=== PATIENT | male | born 1940 | race Caucasian/White ===

== ENCOUNTER 2025-02-25 10:44 | Observation (INO) | payer MEDICARE, OTHER, SELFPAY ==
[2025-02-22 14:49] LABS: Partial Thromboplast Time 25.2 Seconds (24.1-36.2); Prothrombin Time (Protime)PT. 13.7 SECONDS (11.7-14.9)
[2025-02-22 15:16] LABS: Magnesium 2.0 mg/dL (1.5-2.2)
--- NOTE | 2025-02-22 15:26 | PAT.ANE_ITS ---
Pre-Assessment Diagnosis/Proposed Procedure Planned Operative Procedure(s): RIGHT TOTAL KNEE REPLACEMENT Anesthesia History Anesthesia History - rehabilitation specialist: Anesthesia History - rehabilitation specialist Hx Hospitalization No 02/22/25 12:24 Any Problems With Anesthesia No 02/22/25 12:24 Cholinesterase deficiency No 02/22/25 12:24 You/Your Family Experience No 02/22/25 12:24 fever (hyperthermia) with Relationship Recent Exposure to Contagious Disease Does patient have nerve No 02/22/25 12:24 stimulator Patient instructed to have device shut off --Does patient have Pacemaker or ICD? When Was Last Pacemaker Check QUESTION #4 FULL TEXT: You/Your Family Experience fever (hyperthermia) with Anesthesia Last Oral Intake Last Oral intake: Last Oral Intake NPO since Meds taken in AM with sips of water? Meds patient instructed to take am of surgery PONV PONV - rehabilitation specialist: PONV - rehabilitation specialist Female No 02/22/25 12:24 HX of Motion Sickness No 02/22/25 12:24 HX of N/V After Surgery No 02/22/25 12:24 Non-Smoker Yes 02/22/25 12:24 Duration of Surgery greater Yes 02/22/25 12:24 than 60 minutes Number of Risk Factors 2 02/22/25 12:24 PONV Score Moderate Risk 02/22/25 12:24 Respiratory Assessment Respiratory Assessment - rehabilitation specialist: Respiratory Tract Infection Hx - rehabilitation specialist Hx Respiratory Tract Infection No 02/22/25 12:24 STOP Sleep Apnea STOP Sleep Apnea - rehabilitation specialist: STOP Sleep Apnea - rehabilitation specialist Hx Hypertension Yes: CONTROLLED WITH MED 02/22/25 12:24 Hx Sleep Apnea No 02/22/25 12:24 CPAP BIPAP Do you snore loudly (louder No 02/22/25 12:24 than talking or can be heard Do you often feel tired/ No 02/22/25 12:24 fatigued/ sleepy during daytime? Has anyone observed you stop No 02/22/25 12:24 breathing during sleep? STOP Results Negative 02/22/25 12:24 QUESTION #5 FULL TEXT : Do you snore loudly (louder than talking or can be heard through closed doors)? Tobacco Use History Tobacco Use History - rehabilitation specialist: Tobacco Use History - rehabilitation specialist Tobacco Use Smoking Status Former smoker 02/22/25 12:24 Hx Tobacco Use No 02/22/25 12:24 Years Smoking 60 02/22/25 12:24 Packs Smoked per Day Smoking Cessation Date was Yes - quit smoking within 15 02/22/25 12:24 within the last 15 years years Hx Smoking Cessation Date 04/08/21 02/22/25 12:24 Hx Smoking Cessation Counseling Hematologic Medial History Hematologic Hx - rehabilitation specialist: Hematologic Medical Hx - prepared foods service team member Hx of Blood Transfusion Yes 02/22/25 12:24 Hx of Transfusion in last 3 No 02/22/25 12:24 Months Date of Last Transfusion (if within last 3 months) Ever experience any problems No 02/22/25 12:24 with transfusion(s)? Specify any problems Hx of Preganancy in last 3 N/A 02/22/25 12:24 Months Nurse Filling Out Transfusion NBUCHER 02/22/25 12:24 & Questions: Date: 02/22/25 02/22/25 12:24 Time: 12:29 02/22/25 12:24 Patient unable to answer at this time (ie. confused, unrespo /Reproduction History /Reproductive History - rehabilitation specialist: /Reproductive Hx- rehabilitation specialist Hx Now No 02/22/25 12:24 Gestational Age (in weeks): EDC: Hx Hx Para Hx Section SAB No 02/22/25 12:24 Does the father of the baby or his family experience fever w Father of the baby Malignant Hypertension history comment [facility] Medical History (Updated 02/22/25 @ 12:36 by Marcela Alexis) Wears glasses Wears dentures Ambulates with cane High cholesterol Shortness of breath on exertion History of edema Incisional hernia History of abdominal aortic aneurysm (AAA) Type II diabetes mellitus Pleural effusion Iron deficiency anemia Dysphagia Duodenal cancer AVM (arteriovenous malformation) Arterial insufficiency of lower extremity Aortic stenosis BPH (benign prostatic hyperplasia) Prostate disease History of GI bleed Emphysema, unspecified COPD (chronic obstructive pulmonary disease) Former smoker HLD (hyperlipidemia) History of transcatheter aortic valve replacement (TAVR) (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/24) History of heart attack CAD (coronary artery disease) History of echocardiogram Hypertension Cardiology follow-up encounter History of CHF (congestive heart failure) History of atrial fibrillation Low iron Anemia Diabetes Osteoarthritis Home Medications ?Medication ?Instructions ?Recorded ?Last Taken ?Type albuterol sulfate 90 mcg/actuation 2 puff inhalation Q 4H PRN PRN 02/19/25 Unknown History aerosol inhaler wheezing amiodarone 200 mg tablet 200 mg PO DAILY 02/19/25 Unk nown History aspirin 81 mg tablet,delayed 81 mg PO DAILY 02/19/25 U nknown History release atorvastatin 40 mg tablet 40 mg PO QHS 02/19/25 Unknow n History clopidogrel 75 mg tablet 75 mg PO DAILY 02/19/25 Unkn own History docusate sodium 100 mg capsule 100 mg PO BID PRN const ipation 02/19/25 Unknown History doxazosin 1 mg tablet 1 mg PO DAILY 02/19/25 Unkno wn History ferrous sulfate 325 mg (65 mg 325 mg PO DAILY 02/19/25 Unknown History iron) tablet finasteride 5 mg tablet 5 mg PO DAILY 02/19/25 Unkno wn History furosemide 40 mg tablet 40 mg PO DAILY 02/19/25 Unkn own History metformin 500 mg tablet 500 mg PO BID 02/19/25 Unkno wn History metoprolol succinate 25 mg 25 mg PO DAILY 02/19/25 Unk nown History tablet,extended release 24 hr pantoprazole 40 mg tablet,delayed 40 mg PO BID 5 Unknown History release multivitamin (Daily Multi-Vitamin 1 tab PO DAILY 02/22 Unknown History tablet) Allergy/AdvReac Type Severity Reaction Status Date / Time dapagliflozin (From [facility]) Allergy Mild Constipatio Verified 02/22/25 12:21 n lisinopril Allergy Unknown Other Verified 02/22/25 12:21 adhesive tape (tape) AdvReac Mild Itching Verified 02/22/25 12:21 Surgical History (Updated 02/22/25 @ 12:36 by Marcela Alexis) History of cholecystectomy History of cardiac catheterization History of colectomy History of colonoscopy History of cataract extraction History of laparotomy History of herniorrhaphy History of endovascular stent graft for abdominal aortic aneurysm History of heart surgery Social History Smoking Status: Former smoker Audit: Pertinent Findings Pertinent Findings EKG Perinent findings: February 02, 2025.Sinus rhythm with first-degree AV block. Left axis deviation. Incomplete right bundle branch block.. Echo (EF%) pertinent findings: 05/26/2024. EF of 55 to 60%. Transcatheter aortic valve present. RVSP is 36 mmHg. Consult pertinent findings: 02/10/2025. [facility]. 1. Coronary artery disease?stable. No anginal symptoms. Continue aspirin, Plavix, atorvastatin. Status post PTCA in July 2024 with angioplasty and stenting of the LAD. 2. Paroxysmal atrial fibrillation?stable. Maintaining sinus rhythm. Off anticoagulation due to recurrent GI bleeding. Continue amiodarone. [id number]- VASc score 4 3. Cardiomyopathy?stable. EF of 40 to 45%. [place] Heart Association class II. Continue metoprolol. 3. Combined systolic and diastolic heart failure?patient is euvolemic today. 4. GI bleed?resolved. 5. Status post TAVR?follow-up in TAVR clinic. 6. Preop cardiovascular exam?planned total right knee arthroplasty. Patient is status post 6 months after a stent. Okay to hold Plavix for 5 days prior to knee surgery. Continue aspirin. Okay to proceed with surgery at low to moderate cardiac risk. 02/08/2025. Cleared for surgery and anesthesia. Recommendation Anesthesia Recommendation Anesthesia recommendation: OPTIMIZED for anesthesia
[2025-02-25] VITALS (16 sets, daily range): BP systolic 126–190; BP diastolic 69–91; PULSE 57–78; RESP 14–17; TEMP 36.1–36.8; O2SAT 86–100; BMI 31.4; BMI 31.8
--- NOTE | 2025-02-25 08:28 | PRE.ANES_ITS ---
ASA Classification* ASA Classification ASA Classification: 3 Assessment & Plan Anesthesia* Anesthesia Assessment Anesthesia Assessment: Discussed sedation and/or anesthesia options, risks, benefits, and alternatives with patient/parents/legal guardian/POA. Questions invited. The patient/parents/legal guardian/POA seems to understand and agrees to proceed with anesthesia plan. Reviewed the physical assessment, medical history, allergy history and patient home medications list prior to surgery/procedure/anesthetic and documented any changes. Performed airway and anesthesia risk assessments. Anesthesia Type Anesthesia Type: General and Block Anesthesia Focused Assessment* Airway Assessment Mouth opens: >3 cm Mallampati Score: II Labs Anesthesia Preop lab: CBC CHEMISTRY Magnesium, (1.5-2.2) 2.0 mg/dL 02/22/25, 13:45 COAG PT, (11.7-14.9) 13.7 SECONDS 02/22/25, 13:45 Pre-Assessment Diagnosis/Proposed Procedure Planned Operative Procedure(s): RIGHT TOTAL KNEE REPLACEMENT Anesthesia History Anesthesia History - abstract searcher: Anesthesia History - abstract searcher Hx Hospitalization No 02/22/25 12:24 Any Problems With Anesthesia No 02/22/25 12:24 Cholinesterase deficiency No 02/22/25 12:24 You/Your Family Experience No 02/22/25 12:24 fever (hyperthermia) with Relationship Recent Exposure to Contagious Disease Does patient have nerve No 02/22/25 12:24 stimulator Patient instructed to have device shut off --Does patient have Pacemaker or ICD? When Was Last Pacemaker Check QUESTION #4 FULL TEXT: You/Your Family Experience fever (hyperthermia) with Anesthesia Last Oral Intake Last Oral intake: Last Oral Intake NPO since Meds taken in AM with sips of water? Meds patient instructed to take am of surgery PONV PONV - abstract searcher: PONV - abstract searcher Female No 02/22/25 12:24 HX of Motion Sickness No 02/22/25 12:24 HX of N/V After Surgery No 02/22/25 12:24 Non-Smoker Yes 02/22/25 12:24 Duration of Surgery greater Yes 02/22/25 12:24 than 60 minutes Number of Risk Factors 2 02/22/25 12:24 PONV Score Moderate Risk 02/22/25 12:24 Respiratory Assessment Respiratory Assessment - abstract searcher: Respiratory Tract Infection Hx - abstract searcher Hx Respiratory Tract Infection No 02/22/25 12:24 STOP Sleep Apnea STOP Sleep Apnea - abstract searcher: STOP Sleep Apnea - abstract searcher Hx Hypertension Yes: CONTROLLED WITH MED 02/22/25 12:24 Hx Sleep Apnea No 02/22/25 12:24 CPAP BIPAP Do you snore loudly (louder No 02/22/25 12:24 than talking or can be heard Do you often feel tired/ No 02/22/25 12:24 fatigued/ sleepy during daytime? Has anyone observed you stop No 02/22/25 12:24 breathing during sleep? STOP Results Negative 02/22/25 12:24 QUESTION #5 FULL TEXT : Do you snore loudly (louder than talking or can be heard through closed doors)? Tobacco Use History Tobacco Use History - abstract searcher: Tobacco Use History - abstract searcher Tobacco Use Smoking Status Former smoker 02/22/25 12:24 Hx Tobacco Use No 02/22/25 12:24 Years Smoking 60 02/22/25 12:24 Packs Smoked per Day Smoking Cessation Date was Yes - quit smoking within 15 02/22/25 12:24 within the last 15 years years Hx Smoking Cessation Date 04/08/21 02/22/25 12:24 Hx Smoking Cessation Counseling Hematologic Medial History Hematologic Hx - abstract searcher: Hematologic Medical Hx - supervisor anodizing Hx of Blood Transfusion Yes 02/22/25 12:24 Hx of Transfusion in last 3 No 02/22/25 12:24 Months Date of Last Transfusion (if within last 3 months) Ever experience any problems No 02/22/25 12:24 with transfusion(s)? Specify any problems Hx of Preganancy in last 3 N/A 02/22/25 12:24 Months Nurse Filling Out Transfusion [facility] 02/22/25 12:24 & Questions: Date: 02/22/25 02/22/25 12:24 Time: 12:29 02/22/25 12:24 Patient unable to answer at this time (ie. confused, unrespo /Reproduction History /Reproductive History - abstract searcher: /Reproductive Hx- abstract searcher Hx Now No 02/22/25 12:24 Gestational Age (in weeks): EDC: Hx Hx Para Hx Section SAB No 02/22/25 12:24 Does the father of the baby or his family experience fever w Father of the baby Malignant Hypertension history comment Active Medications Active Medications: Current Medications Generic Name Dose Route Start Last Admin Trade Name Aman PRN Reason Stop Dose Admin Acetaminophen 1,000 mg 02/25/25 10:15 Acetaminophen 500 Mg Tablet PO 02/25/25 10:16 PREOP ONE Tranexamic Acid 2,000 mg/ 0 mg 02/25/25 10:15 Sodium Chloride 100 ml OPERA.SITE 02/25/25 10:16 X1 ONE Sodium Chloride 77.9 ml/ 0 ml 02/25/25 10:15 Ropivacaine 200 mg/ OPERA.SITE 02/25/25 10:16 Epinephrine HCl 0.6 mg/ INTRAOP ONE Ketorolac Tromethamine 30 mg/ Morphine Sulfate 5 mg Dexamethasone Sodium Phosphate 10 mg 02/25/25 10:15 Dexamethasone 10 Mg/Ml Vial IV 02/25/25 10:16 INTRAOP ONE Gabapentin 600 mg 02/25/25 10:15 Gabapentin 600 Mg Tablet PO 02/25/25 10:16 PREOP ONE Cefazolin Sodium 2 gm/ Sodium 110 mls @ 150 mls/hr 02/25/25 10:15 Chloride IV 02/25/25 10:58 INTRAOP ONE Lactated Ringer's 1,000 mls @ 15 mls/hr 02/25/25 08:15 IV .Q48H MESSI Insulin Human Lispro 1 - 6 unit 02/25/25 10:15 Insulin Lispro 100 Unit/Ml Insuln.Pen SC Q4H PRN PRN BG>/= 180, SEE PROTOCOL Protocol PFSH Medical History Wears glasses Wears dentures Ambulates with cane High cholesterol Shortness of breath on exertion History of edema Incisional hernia History of abdominal aortic aneurysm (AAA) Type II diabetes mellitus Pleural effusion Iron deficiency anemia Dysphagia Duodenal cancer AVM (arteriovenous malformation) Arterial insufficiency of lower extremity Aortic stenosis BPH (benign prostatic hyperplasia) Prostate disease History of GI bleed Emphysema, unspecified COPD (chronic obstructive pulmonary disease) Former smoker HLD (hyperlipidemia) History of transcatheter aortic valve replacement (TAVR) (04/29/24) History of heart attack CAD (coronary artery disease) History of echocardiogram Hypertension Cardiology follow-up encounter History of CHF (congestive heart failure) History of atrial fibrillation Low iron Anemia Diabetes Osteoarthritis Home Medications ?Medication ?Instructions ?Recorded ?Last Taken ?Type albuterol sulfate 90 mcg/actuation 2 puff inhalation Q 4H PRN PRN 02/19/25 Unknown History aerosol inhaler wheezing amiodarone 200 mg tablet 200 mg PO DAILY 02/19/25 Unk nown History aspirin 81 mg tablet,delayed 81 mg PO DAILY 02/19/25 U nknown History release atorvastatin 40 mg tablet 40 mg PO QHS 02/19/25 Unknow n History clopidogrel 75 mg tablet 75 mg PO DAILY 02/19/25 Unkn own History docusate sodium 100 mg capsule 100 mg PO BID PRN const ipation 02/19/25 Unknown History doxazosin 1 mg tablet 1 mg PO DAILY 02/19/25 Unkno wn History ferrous sulfate 325 mg (65 mg 325 mg PO DAILY 02/19/25 Unknown History iron) tablet finasteride 5 mg tablet 5 mg PO DAILY 02/19/25 Unkno wn History furosemide 40 mg tablet 40 mg PO DAILY 02/19/25 Unkn own History metformin 500 mg tablet 500 mg PO BID 02/19/25 Unkno wn History metoprolol succinate 25 mg 25 mg PO DAILY 02/19/25 Unk nown History tablet,extended release 24 hr pantoprazole 40 mg tablet,delayed 40 mg PO BID 5 Unknown History release multivitamin (Daily Multi-Vitamin 1 tab PO DAILY 02/22 Unknown History tablet) Allergy/AdvReac Type Severity Reaction Status Date / Time dapagliflozin (From [facility]) Allergy Mild Constipatio Verified 02/25/25 08:28 n lisinopril Allergy Unknown Other Verified 02/25/25 08:28 adhesive tape (tape) AdvReac Mild Itching Verified 02/25/25 08:28 Surgical History History of cholecystectomy History of cardiac catheterization History of colectomy History of colonoscopy History of cataract extraction History of laparotomy History of herniorrhaphy History of endovascular stent graft for abdominal aortic aneurysm History of heart surgery Social History Smoking Status: Former smoker Review of Systems (Anesthesia) ROS Narrative System reviewed and no additional complaints, except as documented.
[2025-02-25] MEDS: Magnesium 1 GM over 15 mins IV (08:42)
[2025-02-25] MEDS: Lactated Ringers 1,000 ML 15 ML IV (08:42)
[2025-02-25] MEDS: Midazolam 2 MG/2 ML Syringe 1 MG IV (10:25)
[2025-02-25] MEDS: Lidocaine 1% (5 ml sdv) 5 ML Vial 3 ML IV (10:25)
[2025-02-25] MEDS: Cefazolin 1 GM/5 ML Vial 2 GM IV (10:45)
[2025-02-25] MEDS: JPS (Morphine 10mg/ml) OPERA.SITE (11:07)
[2025-02-25] MEDS: fentaNYL 100 MCG/2 ML Ampul 200 MCG IV (11:18)
[2025-02-25] MEDS: TXA 2000mg in NS 100ml (Placed in Wound) OPERA.SITE (12:00)
--- NOTE | 2025-02-25 12:03 | OP.PCM_ITS ---
Operative Report (Standard) Operative Information Date of Procedure: 02/25/25 Pre-Operative Diagnosis: Right knee arthritis Post-Operative Diagnosis: Same Surgery/Procedure Performed: Right knee replacement vp scientific: Yes Sales Service Supervisor: Steffany Coughlin Tasks completed by library services assistant: Closing, Implanting device, Hemostasis: Electrocautery and Retracting Additional mortgage assistant?: No Type of Anesthesia: General/Supplemental RN Documented Start/Stop Times: Operation Date: 02/25/25 10:15 Case Time Into Pre-Op 02/25/25 08:10 Anesthesia Start 02/25/25 10:41 Into Room 02/25/25 10:41 Procedure Start 02/25/25 11:09 Procedure Start Time: 11:09 Procedure Stop Time: 12:43 Select all DRAINS/GRAFTS/IMPLANTS that apply: Prosthetic device Prosthetic device details: [place] total knee replacement Special Medications: Ancef, Tranexamic acid wash Estimated Blood Loss: 50 Fluids Replaced: 900 Specimen collected: No Description of surgery: Preoperative diagnosis: [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 Marin Special medications: Ancef 2 g IV, tranexamic acid 2 g wash, joint pain cocktail: Ropivacaine, epinephrine, Duramorph, tramadol EBL: 50 Tourniquet time 36 minutes Indications for surgery: Patient is a [84 ]-year-old [ male] with a history of knee arthritis appropriately treated and failed conservative measures and wished to proceed with total knee replacement. Patient was cleared for surgery by the medical doctor and has been evaluated by the anesthesia staff Findings: Intraoperative findings showed severe arthritis of the knee. Patient underwent knee replacement using [place] triathlon total knee components. Press-fit size [6] femur, size [6] tibia, size [6-9 mm CS] X3 tibial polyethylene insert, knee was nicely balanced. Patella tracked well, patella was not resurfaced.. Patient underwent standard wound closure in layers. Vi cryl and strata fix sutures utilized with skin amado. nurse assistant, physician mortgage assistant, was utilized throughout the entire procedure. They were vital in helping with patient positioning, holding of retractors, exposing the tissues adequately for safe completion of the procedure including cutting of the bone, helping civil cadd technician appropriate alignment and sizing of the components, implantation of the components, as well as wound closure, bandage application, and safe patient transfer. Without instructor adjunct surgical technician, physician mortgage assistant, surgical time would have been significantly increased, and surgical outcome could have been less optimal. Description of procedure: The patient was taken to the OR, transferred to the OR table. They were given a spinal anesthetic. Ancef was given IV preoperatively. Tranexamic acid was given IV preoperatively. Well-padded tourniquet was applied to the upper thigh of the operative leg. Nonoperative leg had a MARLON hose and SCD on throughout. Operative limb was prepped padded and draped in usual orthopedic sterile fashion for the procedure. We began by injecting the pain relieving solution in the anterior superior aspect of the knee region. The limb was exsanguinated, and the tourniquet was applied to 250 mmHg. Made a midline incision through skin, subcutaneous tissue, bringing down us on the extensor mechanism. Medial para patellar arthrotomy was carried out. Straw-colored joint fluid was evacuated. We raised a sleeve of tissue off the upper medial tibia. Resected some of the infrapatellar fat pad. We remove degenerative medial and lateral meniscus. Removed bone spurs from about the patella. We removed tissue off the anterior aspect of the distal femur. Patella was translated laterally and/or everted as needed throughout the procedure. ACL was resected. PCL was preserved. Collateral ligaments were preserved. Physician placed the retractors and mortgage assistant held retractors protecting above ligaments throughout the procedure. Cartilage was removed from the distal femur and upper tibia at the appropriate locations. Next custom cutting block was applied to the front of the femur. Appropriate external rotation . Distal femoral cut carried out. 4-in-1 cutting premade block was applied to the distal femur and held in place with 4 pins. Intelligence Chief again held retractors to protect the soft tissues while surgeon performed anterior, posterior, and chamfer cuts. Bony fragments were removed. PCL retractor was placed and collateral ligament protectors placed by the surgeon, held by the assistance. Tibial external alignment guide was utilized under standard technique going down the shaft of the tibia, to the base of the second metatarsal. Appropriate posterior slope was built in. Intelligence Chief help civil cadd technician alignment. Cutting block was held in place with 3 pins. Again checked the external alignment. Tibial cut carried out with a saw while the mortgage assistant held retractors protecting the soft tissues about the anterior, medial, lateral, and posterior knee. Bone fragment removed. We then sized off the upper tibia with the help of the mortgage assistant. We then checked flexion extension gaps finding them to be adequate and equal. Next the distal femoral trial was applied. Tibial tray was allowed to freefloat with a 9 mm insert. Knee was flexed and extended an external alignment guide is utilized. Tibial trial was pinned in place. Drill holes were placed into the distal femoral trial and it was removed. Punch was used on the upper tibial component and that was removed. The sclerotic bone was softened with a sharp pin. Bone spurs removed from the posterior medial and posterior lateral aspect of the femur while the mortgage assistant lifted up on the distal femur and exposed each compartment. Bleeding was controlled at the back of the knee with the bovey. Posterior knee soft tissues were carefully injected with pain relieving solution. Components were checked and open. Tourniquet deflated at 36 minutes.. Knee was thoroughly irrigated with Irrisept and sterile Betadine.. The bony surfaces cleaned and dried. We press-fit the tibia, femur, and component. Tibial tray insert placed.. Intelligence Chief held retractors exposing the bony surfaces of the tibia and femur which were hammered in position. Tranexamic acid 2 g wash performed. We thoroughly irrigated and debrided the knee. Bleeding controlled with the Bovie. Knee was again thoroughly irrigated with sterile Betadine and Irrisept and saline. Patella noted to track nicely. We repaired the arthrotomy with a combination of #1 Vicryl and #2 strata fix. We did a mid layer of 1 Vicryl and #1 strata fix running. We then did inverted 2-0 vicryl . Bussey used on the skin.. Mepilex dressing applied. MARLON hose and SCDs applied. Patient was awoken from their anesthetic, transferred back to their own bed and recovery room in satisfactory condition.. Patient was observation status, appropriate IV antibiotic to be utilized as well as medication for DVT prevention. Hopeful discharge tomorrow. Hospitalist will be consulted we plan to use Eliquis 2.5 mg twice a day for 2 weeks, followed by aspirin 81 mg twice a day with Plavix for 2 weeks, followed by resuming his normal aspirin and Plavix dosage. physical therapy will be consulted. This note was generated with [employer]ipation software. It may contain incorrect words, spelling, and punctuation that were not noted in checking the note before signing. Surgical Findings: Knee arthritis Complications Complications: No Admit VTE Documentation VTE Present on Admission: No VTE Mechan Device Prophylaxis: SCD's and Thigh High MARLON Hose VTE Pharm Prophylaxis ordered?: Yes
--- NOTE | 2025-02-25 13:50 | RAD_ITS ---
PROCEDURE: KNEE 1 OR 2 VIEWS 02/25/2025 REASON FOR EXAM: POST OP-AP/LAT TECHNIQUE: Procedure Code: RADK Modality: DX Procedure: KNEE 1 OR 2 VIEWS Right knee two views COMPARISON: None FINDINGS: There is a total knee prosthesis in position. Soft tissue air and skin amado are noted consistent with recent surgery. Alignment is maintained. Vascular calcifications are noted. RAD/Knee 1 or 2 Views IMPRESSION: Hardware in position. Reading Location: [facility]
--- NOTE | 2025-02-25 14:22 | PCM.POST.ANE ---
Anesthesia: Postop Eval I Current Vital Signs Temperature: 97 F Pulse Rate: 65 Blood Pressure: 166/75 Respiratory Rate: 16 Pulse Ox: 99 Assessment Airway patent: Yes Spontaneous unlabored respirations: Yes Mental status: Awake nausea: No Vomiting: No Anesthesia Complication: No Fluid Hydration Crystalloid volume administer (ml): 400 Total IV fluid infused: 400 Progress Note Anesthesia document: Postop Eval 1 completed: Yes
--- NOTE | 2025-02-25 14:23 | PCM.POSTANE2 ---
Anesthesia Postop Eval I Sum Postop Eval Completion status Anesthesia document: Postop Eval 1 completed: Yes Anesthesia Postop Eval I Summary Anesthesia Postop Eval I Summary: Anesthesia Postop Eval I: Assessment Summary Airway patent Yes 02/25/25 14:23 Spontaneous unlabored Yes 02/25/25 14:23 respirations Mental status Awake 02/25/25 14:23 nausea No 02/25/25 14:23 Vomiting No 02/25/25 14:23 Anesthesia Postop Eval I: Fluid Summary Crystalloid volume administer 400 02/25/25 14:23 (ml) Colloids volume administered ( ml) Blood Product volume administered (ml) Total IV fluid infused 400 02/25/25 14:23 Anesthesia Postop Eval I: Summary Notes Anesthesia Complication No 02/25/25 14:23 Anesthesia Complication Comment: Post-operative progress note Anesthesia: Postop Eval II Evaluation Mental status: Awake Pain Level: 2 nausea: No Vomiting: No
[2025-02-25] MEDS: Lactated Ringers 1,000 ML 125 ML IV ×2 (14:24→22:52)
--- NOTE | 2025-02-25 15:02 | PCM.POST.ANE ---
Anesthesia: Postop Eval I Current Vital Signs Temperature: 97 F Pulse Rate: 78 Blood Pressure: 165/80 Respiratory Rate: 14 Pulse Ox: 94 Oxygen Delivery Method: Nasal Cannula Oxygen Flow Rate (L/min): 2 Assessment Airway patent: Yes Spontaneous unlabored respirations: Yes Mental status: Awake and Calm nausea: No Vomiting: No Anesthesia Complication: No Fluid Hydration Crystalloid volume administer (ml): 900 Total IV fluid infused: 900 Progress Note Post-operative progress note: put in 32 F Nasal airway in PACU to relieve obstruction Anesthesia document: Postop Eval 1 completed: Yes
--- NOTE | 2025-02-25 15:48 | PN.HOSP_ITS ---
Reason for Visit Chief Complaint: right knee arthritis Subjective Subjective Pt seen and examined post op Right total knee per ortho Dr. Nunes. Pt is resting comfortably in bed NAD. Reports R knee pain is tolerable and rates it at 5/10 currently. Pt had elevated bp post op and received labetalol. Pt now on the floor with no complaints of SOB, CP, chest pressure, dizziness or LH. Objective Data Objective Data Vital Signs: Vital Signs Temp Pulse Resp BP Pulse Ox O2 Del Method O2 Flow Rate 97 F L 78 14 165/80 H 94 Nasal Cannula 2 02/25/25 15:03 02/25/25 15:03 02/25/25 15:03 02/25/25 15:03 02/25/25 15:03 02/25/25 15:03 02/25/25 15:03 Oxygen Flow Rate (L/min) 2 Oxygen Delivery Method Nasal Cannula Weight: 92.079 kg Body Mass Index (BMI) 31.8 Intake & Output: Intake and Output for Last 24 Hours 02/23/25 02/24/25 02/25/25 23:59 23:59 23:59 Intake Total 902.25 / 902.25 Output Total 50 / 50 Balance 852.25 / 852.25 Lab / Micro Data Labs: Laboratory Results - last 24 hr 02/25/25 08:27: POC Glucose 181 H 02/25/25 11:14: POC Glucose 146 H 02/25/25 13:12: POC Glucose 169 H 02/25/25 13:59: POC Glucose 196 H 02/25/25 15:03: POC Glucose 231 H Micro: Microbiology 02/22/25 13:45 Swab (Method) Nasal Screen MRSA/MSSA - Final Radiography Diagnostic Testing: Radiology Impression Knee X-Ray 02/25/25 13:50 IMPRESSION: Hardware in position. Reading Location: [facility] Physical Exam Const alert, oriented x3, no apparent distress, healthy appearing and well nourished HEENT head/scalp atraumatic Head and Scalp: normocephalic Eyes PERRL Resp normal respiratory effort, no retractions, no use of accessory muscles and clear to auscultation bilaterally Cardio regular rate and regular rhythm Cardio Narrative: 2/6 systolic murmur LSB 2nd ICS Extremity General Extremity: Negative for edema Neuro oriented x3 Psych affect normal Assessment & Plan Assessment/Plan (1) Osteoarthritis: PLAN: 1. Osteoarthritis - s/p R TKR per Dr. Nunes today. Currently pain controlled / pt says is tolerable. Received perioperative cefazolin and TXA, also received labetalol post op for HTN. At this time pt resting comfortably in bed NAD. 2. Hx CAD prior prior stent July 2024 - plan is to resume asa/plavix per ortho after he is off Eliquis in 2 weeks. Pt also on statin and metoprolol. 3. HTN - with post op HTN. received 10 mg labetalol post op, now on the floor still with HTN >170 systolic. Pt to receive his daily dose of metoprolol and will also add hydralazine prn 4. DMt2 - last a1c 6.6%. resume metformin, added SSI, likely some elevation post op 2/2 perioperative decadron 5. Hx GI bleed - admitted to [place] for this Apr 08 - Apr 17, 2/2 duodenal AVM. Repeat CBC in AM. 6. Hx COPD - pt uses prn O2 at home up to 2 lpm. Currently resting comfortably in bed no SOB and clear lungs. May have albuterol prn. 7. 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 Hx CHF - last EF 55-60% s/p TAVR. Resume home lasix at DC 9. Hx Afib - on amiodarone. not on OAC normally suspect 2/2 hx GI bleed. 10. Hx BPH on finasteride, doxazosin DVT ppx: per ortho, plan is for eliquis 2.5 bid x 2 weeks, then asa bid with plavix 2 weeks, then normal asa/plavix regimen Thank you for the opportunity to participate in the care of this patient. This patient was seen by Damon Rangel PA-C under the supervision of Dr. Moise.
[2025-02-25] MEDS: Metoprolol(XL)Succ 25 MG Tablet PO (16:35)
[2025-02-25] MEDS: Cefazolin 1 GM/50 ML BAG IV (18:34)
[2025-02-26] VITALS (8 sets, daily range): BP systolic 111–130; BP diastolic 61–74; PULSE 64–70; RESP 16–18; TEMP 36.4–37.1; O2SAT 87–100
[2025-02-26] MEDS: Cefazolin 1 GM/50 ML BAG IV (03:15)
[2025-02-26] MEDS: Lactated Ringers 1,000 ML 125 ML IV (06:50)
[2025-02-26 07:24] LABS: Hematocrit 31.4 % (40-54); Hemoglobin 10.6 g/dL (13.0-16.5); Mean Corp Hgb Conc 33.8 g/dL (32-36); Mean Corpuscular Volume 88.7 fL (80-94); Mean Platelet Vol. 8.4 fl (6.2-12.0); Platelet Count 194 K/mm3 (150-450); RBC Distribution Width CV 14.0 % (11.6-14.6); RBC Distribution Width SD 45.6 fl (35.1-43.9); Red Blood Count 3.54 M/mm3 (4.6-6.2); White Blood Count 13.8 K/mm3 (4.4-11.0)
[2025-02-26 07:43] LABS: Anion Gap 12 (5-15); BUN 27 mg/dL (4-19); BUN/Creat Ratio 20.9 RATIO (10-20); Calcium,Total 8.6 mg/dL (7.6-11.0); Carbon Dioxide 22.0 mmol/L (21.0-32.0); Chloride 100 mmol/L (98-108); Estimated Creatinine Clearance 47.68 ml/min (50-250); Glucose 184 mg/dL (70-99); Potassium 4.7 mmol/L (3.3-5.1)
--- NOTE | 2025-02-26 07:57 | DCINST_ITS ---
Discharge Instructions DC O2, CPAP, BIPAP needs Home O2 Discharge instructions: No Dressing / Incision Discharge Activity: May Not Drive (while taking narcotic pain medications.) and Use Walker May shower in (days): 2 (only if incision is dry and without drainage. Do NOT soak/submerge in tub/pool/garcia/stream/hot tub.) Ice area for (Minutes): 20 (Every hour as needed for pain and swelling) Weight Bearing Status: Weight bearing as tolerated Keep extremity elevated above heart level: Operative Extremity Additional Activity Instructions:: Wear elastic stockings for 2 weeks after your surgery. Dressing / Incision Call your doctor if your incision/area has: Continuous Slow Oozing, Sudden Increased Bleeding, Increased Pain/ Swelling, Increased Redness and Foul Smelling Discharge Call your doctor if you observe: Fever of 101 or Higher, Shortness of breath, Chest pain and Calf discomfort Remove Dressing in: 5 days Cleanse incision/area with: Soap & Water Additional Dressing/Incision Instructions:: See postoperative orthopedic pink sheet Follow Up Care Please Follow Up With: Steffany Coughlin PA When: August 24, 2020 2:15 PM [facility] ([place] [facility]) Test Results: Test results from this visit will be discussed in further detail at your follow- up appointment, if applicable. Discharge Plan Admission Admit Date/Time: 02/25/25 10:44 Attending Provider: Ashok Nunes Primary Care Provider: MARY TORRES Consulting Providers: Joanne Wilson Discharge Orders/Prescriptions Prescriptions: New acetaminophen 500 mg Tablet 1,000 mg PO Q8 Qty: 0 0RF oxycodone 5 mg Tablet 5 - 10 mg PO Q4H PRN PRN (Reason: Pain Score 4-10) Qty: 0 0RF Eliquis 5 mg Tablet 2.5 mg PO BID Qty: 0 0RF Continued amiodarone 200 mg tablet 200 mg PO DAILY albuterol sulfate 90 mcg/actuation HFA aerosol inhaler 2 puff INHALATION Q4H PRN PRN (Reason: wheezing) atorvastatin 40 mg tablet 40 mg PO QHS docusate sodium 100 mg capsule 100 mg PO BID PRN (Reason: constipation) furosemide 40 mg tablet 40 mg PO DAILY metformin 500 mg tablet 500 mg PO BID doxazosin 1 mg tablet 1 mg PO DAILY pantoprazole 40 mg tablet,delayed release (DR/EC) 40 mg PO BID ferrous sulfate 325 mg (65 mg iron) tablet 325 mg PO DAILY metoprolol succinate 25 mg tablet extended release 24 hr 25 mg PO DAILY finasteride 5 mg tablet 5 mg PO DAILY multivitamin [Daily Multi-Vitamin] Tablet 1 tab PO DAILY Held aspirin 81 mg tablet,delayed release (DR/EC) 81 mg PO DAILY Hold Instructions: Resume on 03/13/25. Hold until finished with eliquis prescription then take twice daily for 2 weeks clopidogrel 75 mg tablet 75 mg PO DAILY Hold Instructions: Resume on 03/13/25. Hold until finished with eliquis Referrals / Follow Up: MARY TORRES, [employer] [Primary Care Provider, Family Practice] Disposition Disposition (needs filled in before D/C Order can be placed): Home, Self Care
--- NOTE | 2025-02-26 09:09 | CASEMGMT ---
JOSEPH BURKETT note: Noted dc instructions state pt's f/u appt @ [facility] w/Steffany DICK is 08/24/20. Call placed to [facility]. Appt claudia/Steffany is 03/11/25 @ 2 PM. Appt added to pt's dc instructions. Per [facility] pt is also scheduled for OP therapy @ [facility] 03/01 @ 10:15 AM. This was added to pt's dc plan. Denice AGUSTIN RN CM
--- NOTE | 2025-02-26 09:17 | PN.ORTHO_ITS ---
Subjective Subjective 84-year-old male underwent a right total knee arthroplasty yesterday morning. Intraoperative was uneventful he has been transferred to the third floor of the hospital. He worked with physical therapy no adverse events overnight he feels the pain in the right knee has been well controlled. Denies chest pain shortness of breath or calf pain. He admits to feeling somewhat lightheaded. His plan will be for a discharge to home later today. Objective Data Objective Data Patient is alert and oriented ?3 no acute distress at rest breathing easily without respiratory distress. Inspection of the right knee is with intact waterproof dressing without active drainage or erythema warmth or signs of infection. Negative Homans bilaterally without signs of DVT. Patient able to actively plantar and dorsiflex bilateral ankles against resistance sensation intact to light touch pedal pulses present bilaterally neurovascularly intact Vital Signs: Vital Signs Temp Pulse Resp BP Pulse Ox O2 Del Method O2 Flow Rate 98.1 F 65 18 128/72 H 96 Nasal Cannula 2 02/26/25 06:45 02/26/25 06:45 02/26/25 06:45 02/26/25 06:45 02/26/25 06:45 02/26/25 06:45 02/26/25 06:45 Oxygen Flow Rate (L/min) 2 Oxygen Delivery Method Nasal Cannula Weight: 92.079 kg Body Mass Index (BMI) 31.8 Intake & Output: Intake and Output for Last 24 Hours 02/24/25 02/25/25 02/26/25 23:59 23:59 23:59 Intake Total 1946.00 / 2346.00 1745.83 / 1745.83 Output Total 50 / 50 Balance 1896.00 / 2296.00 1745.83 / 1745.83 Lab / Micro Data Attestation: I reviewed the patient's lab results. 02/26/25 07:03 02/26/25 07:03 Labs: Laboratory Results - last 24 hr 02/25/25 08:27: POC Glucose 181 H 02/25/25 11:14: POC Glucose 146 H 02/25/25 13:12: POC Glucose 169 H 02/25/25 13:59: POC Glucose 196 H 02/25/25 15:03: POC Glucose 231 H 02/25/25 22:56: POC Glucose 220 H 02/26/25 07:03: WBC 13.8 H, RBC 3.54 L, Hgb 10.6 L, Hct 31.4 L, MCV 88.7, MCH 29.9, MCHC 33.8, RDW Std Deviation 45.6 H, RDW Coeff of Mariela 14.0, Plt Count 194, MPV 8.4, Sodium 135, Potassium 4.7, Chloride 100, Carbon Dioxide 22.0, Anion Gap 12, BUN 27 H, Creatinine 1.27 H, Estim Creat Clear Calc 47.68 L, Est GFR (MDRD) Non-Af 56 L, BUN/Creatinine Ratio 20.9 H, Glucose 184 H, Calcium 8.6 Micro: Microbiology 02/22/25 13:45 Swab (Method) Nasal Screen MRSA/MSSA - Final Radiography Diagnostic Testing: Radiology Impression Knee X-Ray 02/25/25 13:50 IMPRESSION: Hardware in position. Reading [facility] Postoperative x-rays reviewed by myself consistent with expected postoperative changes following a right total knee arthroplasty Assessment & Plan Assessment/Plan (1) Osteoarthritis: QUALIFIERS: Osteoarthritis location: knee Osteoarthritis type: p rimary Laterality: right Qualified Code(s): M17.11 - Unilateral primary osteoarthritis, right knee PLAN: -Status post right total knee arthroplasty postoperative day #1 -Continue oxycodone as needed for pain -DVT prophylaxis bilateral teds SCDs plan for Eliquis 2.5 mg 1 p.o. b.i.d. ?2 weeks postoperative. At that time he will then resume his preoperative dose of Plavix. He will increase preoperative dose of aspirin to become 81 mg twice daily times an additional 2 weeks. -Begin PT/OT weightbearing as tolerated right lower extremity with a walker. Plan for arrangements for outpatient physical therapy. -Drop in hemoglobin hematocrit a symptomatic without indications for transfusion likely a combination of hemodilution and acute blood loss continue to monitor -Leukocytosis afebrile without acute signs of infection likely resulting from acute stress response burst Decadron anticipate resolution over the next several days -Diabetes myelitis recommend keeping blood sugars less than 180 in the perioperative period to minimize the risks associated with postoperative complication -Encouraged incentive spirometry -Continue discharge planning with case management anticipate discharge to home later today -Continue postoperative medical management per hospitalist -Patient is orthopedically stable and okay for discharge when cleared medically having adequate pain control and doing well with physical therapy will plan to follow up in the office 2 weeks for x-rays and staple removal -Patient was previously scheduled as an outpatient procedure and then transferred to the hospital on a different date for an observation overnight stay. As a result he already has prescriptions at home for oxycodone and Zofran famotidine and Eliquis.
[2025-02-26] MEDS: APIXABAN 2.5 MG TABLET (WCH) PO (10:01)
[2025-02-26] MEDS: Metoprolol(XL)Succ 25 MG Tablet PO (10:02)
--- NOTE | 2025-02-26 10:13 | CASEMGMT ---
RODRIGUEZ Met with patient to complete RODRIGUEZ form. RODRIGUEZ form and its content were verbally explained and patient's questions were answered to the best of my ability.? Patient voiced understanding and signed RODRIGUEZ form.? Patient provided a copy of signed RODRIGUEZ form and original placed in patient's chart.? Patient had no further questions. Cyn Dhaliwal, Discharge Planning Asst
[2025-02-26] MEDS: Ensure Surgery 237 ML LIQUID PO (10:21)
--- NOTE | 2025-02-26 14:12 | CASEMGMT ---
JOSEPH BURKETT note: Discharge order is in. Pt to discharge home on Eliquis. Noted no new Rx sent to pharmacy for this in [facility]. Call placed to [facility] pharmacy in [place]. They did receive the order for Eliquis 2.5 mg 9 days ago and it is still available for pt to [facility]. Per pharmacy, cost is $23.40. Pt made aware. Provided w/Eliquis 30 day free-trial offer card and made aware this is a once-in-a lifetime use card. He states he may not use it and save it for a future use if cost is higher, but he is not sure. Pt states his son will be taking him home today. He is aware appt has been made @ [facility] for OP therapy 03/01 @ 10:15 AM. He denies needing any DME, verifying he has a walker @ home and denies having further discharge needs or concerns. Denice AGUSTIN RN CM
--- NOTE | 2025-02-26 16:14 | PCM.PN.HOSP ---
Reason for Visit Chief Complaint: right knee arthritis Subjective Subjective Patient evaluated bedside, no acute complaints whatsoever, looking forward to going home Objective Data Objective Data Vital Signs: Vital Signs Temp Pulse Resp BP Pulse Ox O2 Del Method O2 Flow Rate 97.6 F L 70 16 118/62 99 Room Air 2 02/26/25 14:04 02/26/25 14:04 02/26/25 14:04 02/26/25 14:04 02/26/25 14:04 02/26/25 14:04 02/26/25 08:03 Oxygen Flow Rate (L/min) 2 Oxygen Delivery Method Room Air Weight: 92.079 kg Body Mass Index (BMI) 31.8 Intake & Output: Intake and Output for Last 24 Hours 02/24/25 02/25/25 02/26/25 23:59 23:59 23:59 Intake Total 1946.00 / 2346.00 2145.83 / 2145.83 Output Total 50 / 50 Balance 1896.00 / 2296.00 2145.83 / 2145.83 Lab / Micro Data 02/26/25 07:03 02/26/25 07:03 Labs: Laboratory Results - last 24 hr 02/25/25 22:56: POC Glucose 220 H 02/26/25 06:52: POC Glucose 173 H 02/26/25 07:03: WBC 13.8 H, RBC 3.54 L, Hgb 10.6 L, Hct 31.4 L, MCV 88.7, MCH 29.9, MCHC 33.8, RDW Std Deviation 45.6 H, RDW Coeff of Mariela 14.0, Plt Count 194, MPV 8.4, Sodium 135, Potassium 4.7, Chloride 100, Carbon Dioxide 22.0, Anion Gap 12, BUN 27 H, Creatinine 1.27 H, Estim Creat Clear Calc 47.68 L, Est GFR (MDRD) Non-Af 56 L, BUN/Creatinine Ratio 20.9 H, Glucose 184 H, Calcium 8.6 02/26/25 11:46: POC Glucose 190 H Micro: Microbiology 02/22/25 13:45 Swab (Method) Nasal Screen MRSA/MSSA - Final Physical Exam Narrative General: Alert, oriented, no apparent distress HEENT: Atraumatic, normocephalic Eyes: Anicteric, normal conjunctiva, extraocular movements grossly intact Neck: Supple Respiratory: Clear to auscultation bilaterally, normal respiratory effort Cardiovascular: Regular rate GI: Firm, nontender Extremities: No edema Musculoskeletal: Moving all extremities Neuro: No overt focal neurological deficits Skin: No rashes appreciated Psych: Cooperative Assessment & Plan Assessment/Plan (1) Osteoarthritis: QUALIFIERS: Osteoarthritis location: knee Osteoarthritis type: primary Laterality: right Qualified Code(s): M17.11 - Unilateral primary osteoarthritis, right knee PLAN: 1. Osteoarthritis - s/p R TKR per Dr. Nunes today. Currently pain controlled 08/15 pt says is tolerable. Received perioperative cefazolin and TXA, also received labetalol post op for HTN. At this time pt resting comfortably in bed NAD -02/26: Management per Ortho. 2. Hx CAD prior prior stent July 2024 - plan is to resume asa/plavix per ortho after he is off Eliquis in 2 weeks. Pt also on statin and metoprolol. -02/26: Denying any acute complaints 3. HTN - with post op HTN. received 10 mg labetalol post op, now on the floor still with HTN >170 systolic. Pt to receive his daily dose of metoprolol and will also add hydralazine prn -02/26: Blood pressure before discharge 118/62, well within acceptable range 4. DMt2 - last a1c 6.6%. resume metformin, added SSI, likely some elevation post op 2/2 perioperative decadron -02/26: Can follow-up with PCP on discharge 5. Hx GI bleed - admitted to [facility] for this Apr 08 - Apr 17, 2/2 duodenal AVM. Repeat CBC in AM. -02/26: Hemoglobin 10.6, patient denies any active bleeding 6. Hx COPD - pt uses prn O2 at home up to 2 lpm. Currently resting comfortably in bed no SOB and clear lungs. May have albuterol prn. -02/26: Patient 99% on room air before discharge, denied any shortness of breath 7. 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 Hx CHF - last EF 55-60% s/p TAVR. Resume home lasix at DC -02/26: No shortness of breath or peripheral edema 9. Hx Afib - on amiodarone. not on OAC normally suspect 2/2 hx GI bleed. -02/26: Heart rate before discharge 70 10. Hx BPH on finasteride, doxazosin -02/26: Follow-up with PCP DVT ppx: per ortho, plan is for eliquis 2.5 bid x 2 weeks, then asa bid with plavix 2 weeks, then normal asa/plavix regimen Time spent in the patient's overall evaluation,decision-making process, review of diagnostic data, adjustment of management, discussion with other providers, nursing nursing and ancillary staff involved in patient's care documentation, 25 minutes Charges/Coding Visit Charges Inpatient E&M: 14893 [facility] L1
== END 2025-02-26 16:14 | disposition home or self-care (01) ==
LOC: SDC 14:20 → MS3 14:20
PROVIDERS: Anesthesiology; Admitting Provider Orthopaedic Surgery; PCP Nurse Practitioner Family; Referring Provider Orthopaedic Surgery; Visit Provider Orthopaedic Surgery
PROC: (CPT 27447; principal; 2025-02-25 09:50)
DX: M17.11 Unilateral primary osteoarthritis, right knee (principal); I11.0 Hypertensive heart disease with heart failure; I50.42 Chronic combined systolic (congestive) and diastolic (congestive) heart failure; J44.9 Chronic obstructive pulmonary disease, unspecified; I48.0 Paroxysmal atrial fibrillation; E11.9 Type 2 diabetes mellitus without complications; R03.0 Elevated blood-pressure reading, without diagnosis of hypertension; N40.1 Benign prostatic hyperplasia with lower urinary tract symptoms; R35.1 Nocturia; Z87.891 Personal history of nicotine dependence; E78.5 Hyperlipidemia, unspecified; Z79.899 Other long term (current) drug therapy; Z79.82 Long term (current) use of aspirin; Z79.02 Long term (current) use of antithrombotics/antiplatelets
CPT/HCPCS: 27447; 01402; 36415; 73560; 80048; 82962; 83735; 85027; 85610; 85730; 87081; 94668; 96361; 96365; 96366; 96375; 97162; 97165; 99221; C1776; G0378; J2405; J3475

== ENCOUNTER → 2025-03-11 | Outpatient (CLI) | payer MEDICARE, OTHER, SELFPAY ==
--- NOTE | 2025-03-11 15:23 | VDLE_ITS ---
Reason For Study Reason For Study: Pain RIGHT LEFT GSV is normal. CFV is compressible, spontaneous, phasic, competent, CFV is compressible, spontaneous, phasic, competent and demonstrates normal augmentation. and demonstrates normal augmentation. FV is compressible, spontaneous, phasic, competent and demonstrates normal augmentation. POP V is compressible, spontaneous, phasic, competent and demonstrates normal augmentation. T/P Trunk is compressible. PTV is compressible. RT PerV is compressible. Procedure This is a venous duplex using B-mode, color flow and spectral Doppler. Exam performed in department. A preliminary report was called and/or faxed to MAYELIN Larson. VL/Venous Duplex US, Unilateral Interpretation Summary Deep veins of the right lower extremity are patent and compressible segmentally . There is no evidence of right lower extremity deep vein thrombosis. Valvular competence appears intact within the p roximal deep venous system on the right . The right great saphenous vein appears patent and compressible segmentally. The left common femoral vein is patent and compressible . Ordering Physician: Steffany Coughlin Referring Physician: Vega Roland NP Performed By: Destini Luke RVT
== END | disposition home or self-care (01) ==
LOC: CVS 15:21
PROVIDERS: PCP Nurse Practitioner Family; Referring Provider Physician Assistant; Visit Provider Physician Assistant
DX: M79.661 Pain in right lower leg (principal)
CPT/HCPCS: 93971